=== PATIENT | male | born 1955 ===

== ENCOUNTER 2017-04-20 18:10 | Emergency (ER) | payer OTHER ==
[2017-04-20 18:55] VITALS: BP 123/76; PULSE 59; RESP 20; TEMP 98.5; O2SAT 97
--- NOTE | 2017-04-20 20:07 | C.PDOC ---
History Of Present Illness 62 y/o male presents to ED with complaints of right knee pain and right elbow pain. Patient states he was at work around 1pm today and tripped falling on floor where there was construction material. Patient sustained abrasion to right elbow, knee and lower right leg. Patient reports he was wearing safety equipment and denies head injury, loc, dizziness, weakness, numbness or any other complaints at this time. Time Seen by Provider: 04/20/17 19:17 Chief Complaint (Nursing): Upper Extremity Problem/Injury History Per: Patient History/Exam Limitations: no limitations Onset/Duration Of Symptoms: Hrs Current Symptoms Are (Timing): Still Present Past Medical History Reviewed: Historical Data, Nursing Documentation, Vital Signs Vital Signs: Last Vital Signs Temp 98.5 F 04/20/17 18:33 Pulse 59 L 04/20/17 18:33 Resp 20 04/20/17 18:33 BP 123/76 04/20/17 18:33 Pulse Ox 97 04/20/17 20:49 - Medical History PMH: Asthma, Diabetes, HTN, Hypercholesterolemia Family History: States: No Known Family Hx - Social History Hx Tobacco Use: No Hx Alcohol Use: Yes Hx Substance Use: No - Immunization History Hx Tetanus Toxoid Vaccination: Yes Hx Influenza Vaccination: No Hx Pneumococcal Vaccination: Yes Review Of Systems Except As Marked, All Systems Reviewed And Found Negative. Eyes: Negative for: Vision Change Respiratory: Negative for: Shortness of Breath Gastrointestinal: Negative for: Nausea, Vomiting Musculoskeletal: Positive for: Arm Pain, Leg Pain Skin: Negative for: Rash Neurological: Negative for: Weakness, Numbness, Headache Physical Exam - Physical Exam Appears: Non-toxic, No Acute Distress Skin: Normal Color, Warm, No Rash, Other (3cm abrasion to right elbow. Several abrasions to right knee +swelling and tenderness) Head: Atraumatic, Normacephalic Eye(s): bilateral: Normal Inspection, PERRL, EOMI Nose: Normal Oral Mucosa: Moist Neck: Normal ROM, Supple Chest: Symmetrical Extremity: Normal ROM, Capillary Refill (<2 seconds) Pulses: Left Dorsalis Pedis: Normal, Right Dorsalis Pedis: Normal Neurological/Psych: Oriented x3, Normal Speech, Normal Cognition, Normal Motor, Normal Sensation ED Course And Treatment O2 Sat by Pulse Oximetry: 97 (RA) Pulse Ox Interpretation: Normal Progress Note: Xrays are negative. Ambulatory in the ED with steady gait. Disposition - Disposition Referrals: [facility] [Outside] Disposition: HOME/ ROUTINE Disposition Time: 20:45 Condition: GOOD Additional Instructions: Follow up with the medical doctor within 1-2 days, Return if worsened. Prescriptions: Acetaminophen [Tylenol] 325 mg PO Q6 PRN #30 tab PRN Reason: Pain, Mild (1-3) Ibuprofen [Motrin] 600 mg PO TID #21 tab Instructions: Contusion in Adults (ED) Forms: [employer] (American), Work Excuse Print Language: BELARUSIAN - Clinical Impression Clinical Impression: Elbow contusion, Knee contusion, Ankle sprain - PA / GRANTS DIRECTOR / Resident Statement MD/DO has reviewed & agrees with the documentation as recorded. - Scribe Statement The provider has reviewed the documentation as recorded by the Coraibleonie Madera All medical record entries made by the Coraibleonie were at my direction and personally dictated by me. I have reviewed the chart and agree that the record accurately reflects my personal performance of the history, physical exam, medical decision making, and the department course for this patient. I have also personally directed, reviewed, and agree with the discharge instructions and disposition.
[2017-04-20] MEDS ORDERED: Bacitracin 500 Units/gm Oint Foilpak UD TOP ONE (20:35)
[2017-04-20] MEDS ORDERED: Bacitracin 500 Units/gm Oint Foilpak UD ONE (20:40)
--- NOTE | 2017-04-21 08:58 | RAD ---
PROCEDURE: Right Ankle Radiographs. HISTORY: ankle injury pain laterally COMPARISON: None available. FINDINGS: BONES: No acute displaced fracture. JOINTS: No dislocation. SOFT TISSUES: No evidence of radiopaque foreign body. OTHER FINDINGS: None. IMPRESSION: No acute displaced fracture, dislocation, or significant joint effusion identified. If symptoms persist or if there is clinical concern, x-ray follow-up in 7-10 days should be considered.
--- NOTE | 2017-04-21 09:01 | RAD ---
PROCEDURE: Right Knee Radiographs. HISTORY: COMPARISON: None available. FINDINGS: BONES: No acute displaced fracture. JOINTS: No dislocation. JOINT EFFUSION: No significant joint effusion. OTHER FINDINGS: None. IMPRESSION: No acute displaced fracture, dislocation, or significant joint effusion identified. If symptoms persist, or if there is continued clinical concern, x-ray follow-up in 7-10 days should be considered.
--- NOTE | 2017-04-21 09:07 | RAD ---
PROCEDURE: Radiographs of the right elbow. HISTORY: injury, and pain COMPARISON: None available. FINDINGS: BONES: No acute displaced fracture. JOINTS: No dislocation. SOFT TISSUES: Unremarkable. No evidence of radiopaque foreign body. JOINT EFFUSION: No significant joint effusion. OTHER FINDINGS: None IMPRESSION: No acute displaced fracture, dislocation, or significant joint effusion identified. If high clinical index of suspicion for occult fracture remains, recommend cross-sectional imaging. Otherwise if symptoms persist, or if there is continued clinical concern, x-ray follow-up in 7-10 days should be considered.
== END 2017-04-20 21:05 | disposition home or self-care (01) ==
LOC: C.ER 18:10
DX: S50.01XA Contusion of right elbow, initial encounter (principal); S80.01XA Contusion of right knee, initial encounter; S93.409A Sprain of unspecified ligament of unspecified ankle, initial encounter; W01.0XXA Fall on same level from slipping, tripping and stumbling without subsequent striking against object, initial encounter; Y92.89 Other specified places as the place of occurrence of the external cause; Y99.0 Civilian activity done for income or pay

== ENCOUNTER 2017-12-25 13:26 | Emergency (ER) | payer OTHER ==
[2017-12-25 13:57] VITALS: TEMP 98.1
--- NOTE | 2017-12-25 15:58 | C.PDOC ---
History Of Present Illness 62 y/o male with history of DM presents to ED with c/o left knee pain right and hip pain 5/10 for 1 week. Patient states knee pain is worse when walking up and down stairs or crossing legs. Patient states hip pain is worse when bending down and denies injury, dysuria, hematuria, numbness or any other complaints at this time. Time Seen by Provider: 12/25/17 15:02 Chief Complaint (Nursing): Back Pain History Per: Patient History/Exam Limitations: no limitations Onset/Duration Of Symptoms: Days Current Symptoms Are (Timing): Still Present Quality Of Discomfort: "Pain" Past Medical History Reviewed: Historical Data, Nursing Documentation, Vital Signs Vital Signs: Last Vital Signs Temp 98.1 F 12/25/17 16:26 Pulse 72 12/25/17 16:26 Resp 16 12/25/17 16:26 BP 110/74 12/25/17 16:26 Pulse Ox 99 12/25/17 16:26 - Medical History PMH: Asthma, Diabetes, HTN, Hypercholesterolemia Surgical History: No Surg Hx Family History: States: No Known Family Hx - Social History Hx Tobacco Use: No Hx Alcohol Use: Yes Hx Substance Use: No - Immunization History Hx Tetanus Toxoid Vaccination: Yes Hx Influenza Vaccination: No Hx Pneumococcal Vaccination: Yes Review Of Systems Constitutional: Negative for: Fever, Chills Gastrointestinal: Negative for: Nausea, Vomiting Genitourinary: Negative for: Dysuria, Hematuria Musculoskeletal: Positive for: Back Pain Skin: Negative for: Rash Physical Exam - Physical Exam Appears: Non-toxic, No Acute Distress Skin: Warm, Dry, No Rash Head: Atraumatic, Normacephalic Eye(s): bilateral: Normal Inspection Oral Mucosa: Moist Neck: Normal ROM, Supple Back: No CVA Tenderness, No Paraspinal Tenderness Extremity: No Tenderness, Capillary Refill (<2 seconds), No Deformity, No Swelling Neurological/Psych: Oriented x3, Normal Speech, Normal Motor, Normal Sensation Gait: Steady ED Course And Treatment O2 Sat by Pulse Oximetry: 97 (RA) Pulse Ox Interpretation: Normal Progress Note: Motrin and Tylenol administerd. Patient sent home with Naprosen and Albuterol requested for allergies. Disposition Counseled Patient/Family Regarding: Diagnosis, Need For Followup, Rx Given - Disposition Referrals: Edson Eldridge MD [Non-Staff] - Maria L Collins MD [Staff Provider] - Disposition: HOME/ ROUTINE Disposition Time: 15:55 Condition: STABLE Prescriptions: Albuterol 0.083% [Albuterol 0.083% Inhal Denae (2.5 mg/3 ml) UD] 2.5 mg IH BID # 24 neb Naproxen [Naprosyn] 1 tab PO BID PRN #25 tab PRN Reason: Pain Instructions: Joint Pain Forms: [employer] (Slovak), Gen Discharge Inst Slovak Print Language: YORUBA - POA Present On Arrival: None - Clinical Impression Clinical Impression: Knee pain, left, Hip pain, right - Scribe Statement The provider has reviewed the documentation as recorded by the Scribleonie Madera All medical record entries made by the Scribleonie were at my direction and personally dictated by me. I have reviewed the chart and agree that the record accurately reflects my personal performance of the history, physical exam, medical decision making, and the department course for this patient. I have also personally directed, reviewed, and agree with the discharge instructions and disposition.
[2017-12-25 16:27] VITALS: BP 110/74; PULSE 72; RESP 16
[2017-12-25 17:11] VITALS: O2SAT 97
== END 2017-12-25 16:26 | disposition home or self-care (01) ==
LOC: C.ER 13:26
DX: M25.551 Pain in right hip (principal); M25.562 Pain in left knee; E11.9 Type 2 diabetes mellitus without complications; E78.00 Pure hypercholesterolemia, unspecified; I10 Essential (primary) hypertension; J45.909 Unspecified asthma, uncomplicated